=== PATIENT | female | born 1950 | race Caucasian/White ===

== ENCOUNTER 2020-05-17 09:27 | Outpatient (CLI) | payer OTHER, SELFPAY ==
[2020-05-19 16:41] LABS: SARS-CoV-2 RNA PCR Negative
== END 2020-05-17 09:28 | disposition home or self-care (01) ==
LOC: CHSLAB 09:31
PROVIDERS: PCP Family Medicine; Visit Provider Family Medicine
DX: Z20.828 Contact with and (suspected) exposure to other viral communicable diseases (principal)
CPT/HCPCS: 87635; C9803; U0003

== ENCOUNTER → 2020-05-31 08:11 | Outpatient (CLI) | payer MEDICARE, SELFPAY ==
--- NOTE | ~2020-05-31 | US_ITS ---
US abdomen complete EXAMINATION: US Abdomen Complete INDICATION: Right lower quadrant pain. PROCEDURE: Realtime High Resolution abdomen ultrasound. COMPARISON: No prior studies for comparison FINDINGS: Gallbladder is surgically absent. There are multiple echogenic foci in the gallbladder sultana a, likely dropped stones. Common bile duct measures 5-6 mm. Liver echotexture within normal limits without focal mass. Pancreas within normal limits. Pancreati c tail is obscured by bowel gas. Spleen is unremarkeable. Renal echotexture is within normal limits bilaterally without hydronephrosis, contour deforming mass or renal stone. Right kidney measures 10.8 cm. Left kidney measures 11.2 cm. Visualized aspects of the aorta and IVC are within normal limits. Portal vein is patent. No sonograph ic Sánchez's sign indicated by the technologist. IMPRESSION: 1: Echogenic foci in the gallbladder fossa postcholecystectomy, likely dropped stones. Reviewed, dictated and finalized at location A. LAY PLASTICIAN
== END ==
PROVIDERS: PCP Family Medicine; Visit Provider Family Medicine
DX: R10.31 Right lower quadrant pain (principal)
CPT/HCPCS: 76700

== ENCOUNTER → 2020-06-24 13:17 | Outpatient (CLI) | payer MEDICARE, SELFPAY ==
--- NOTE | ~2020-06-24 | CT_ITS ---
EXAMINATION: CT abdomen pelvis wo con DATE: 06/24/2020 14:14 INDICATION: Right lower quadrant pain TECHNIQUE: Computed tomography (CT) of the abdomen and pelvis was performed without intravenous contr ast. The dose-length product (DLP) was 1092.61 mGy-cm. Automated exposure control and iterative recon struction technique were employed. COMPARISON: 02/09/2018 FINDINGS: There are chronic reticular and groundglass opacities of the visualized lung bases. The hea rt size is normal. There is a small sliding hiatal hernia. Calcified coronary artery atherosclerosis is noted. The gallbladder is surgically absent. Within the limitations of noncontrast examination, th e liver, spleen, pancreas, and adrenal glands are normal. The kidneys are unremarkable. No pathologic ally enlarged abdominal or pelvic lymph nodes are identified. There is no free intraperitoneal gas or evidence of bowel obstruction. There is calcified atherosclerosis of the aorta and many of the other arteries. The appendix is normal. There is liquid stool throughout the colon to the level of the rec ros. There is severe lumbar spondylosis at L2-3. IMPRESSION: 1. No CT correlate for the patient's symptoms. 2. Liquid stool in the colon to the level of the rectum. Correlate for diarrhea. 3. Chronic interstitial lung disease of the visualized lung bases. Reviewed, dictated and finalized at location A. RAL NEUROLOGIST IMPRESSION: 1. No CT correlate for the patient's symptoms. 2. Liquid stool in the colon to the level of the rectum. Correlate for diarrhea . 3. Chronic interstitial lung disease of the visualized lung bases.
[2020-06-24 13:52] LABS: Estimated Glomerular Filt Rate 26
== END ==
PROVIDERS: PCP Family Medicine; Visit Provider Family Medicine
DX: R10.31 Right lower quadrant pain (principal); J84.9 Interstitial pulmonary disease, unspecified
CPT/HCPCS: 74176

== ENCOUNTER → 2021-04-02 13:58 | Outpatient (CLI) | payer MEDICARE, SELFPAY ==
--- NOTE | ~2021-04-02 | MM_ITS ---
EXAMINATION: MM screening [facility] BI w adithya HISTORY: Screening mammogram TECHNIQUE: Craniocaudal and mediolateral oblique 3-D tomosynthesis images were obtained and synthetic 2-D images were generated. CAD analysis was submitted and interpreted. COMPARISON: 09/30/2017, 09/16/2017, 04/13/2016 BREAST PARENCHYMAL COMPOSITION: The breasts are heterogeneously dense, which may obscure small masses . FINDINGS: RIGHT BREAST: An asymmetry is present in the middle third of the upper breast 7 cm from the nipple on the mediolateral oblique view. LEFT BREAST: There is an asymmetry in the posterior third of the breast in line with the nipple axis 9.1 cm from the nipple on the mediolateral oblique view. IMPRESSION: 1. Bilateral breast findings as described above. 2. Additional mammographic views and possible breast ultrasound are recommended. BI-RADS Category 0: Incomplete: Needs additional imaging evaluation. Reviewed, dictated and finalized at location A. IMPRESSION: 1. Bilateral breast findings as described above. 2. Additional mammographic views and possible breast ultrasound are recommended . BI-RADS Category 0: Incomplete: Needs additional imaging evaluation.
== END ==
PROVIDERS: PCP Family Medicine; Visit Provider Nurse Practitioner Family
DX: Z12.31 Encounter for screening mammogram for malignant neoplasm of breast (principal); R92.8 Other abnormal and inconclusive findings on diagnostic imaging of breast
CPT/HCPCS: 77063; 77067

== ENCOUNTER → 2021-05-07 08:34 | Outpatient (CLI) | payer MEDICARE, SELFPAY ==
--- NOTE | ~2021-05-07 | MMUS_ITS ---
EXAMINATION: MM diagnostic [facility] BI w adithya, US breast BI complete HISTORY: Bilateral breast asymmetries reported on 04/02/2021 bilateral screening mammogram TECHNIQUE: Additional 3-D tomosynthesis images of both breasts were performed and synthetic 2-D image s were generated. CAD analysis was submitted and interpreted. High resolution complete bilateral [facility] ultrasound including all 4 quadrants and subareolar areas was performed. COMPARISON: 04/02/2021 bilateral screening mammogram BREAST PARENCHYMAL COMPOSITION: The breasts are heterogeneously dense, which may obscure small masses . FINDINGS: MAMMOGRAPHIC FINDINGS: No suspicious mass or architectural distortion, malignant calcification, skin thickening or retractio n or significant new or developing density is detected. ULTRASOUND: No suspicious mass or shadowing or other significant sonographic abnormality of either breast is dete cted. IMPRESSION: 1. No mammographic evidence of malignancy 2. Routine annual mammographic screening is recommended BI-RADS Category 1: Negative Reviewed, dictated and finalized at location A. E COORDINATOR IMPRESSION: 1. No mammographic evidence of malignancy 2. Routine annual mammographic screening is recommended BI-RADS Category 1: Negative
== END ==
PROVIDERS: PCP Family Medicine; Visit Provider Nurse Practitioner Family
DX: R92.8 Other abnormal and inconclusive findings on diagnostic imaging of breast (principal)
CPT/HCPCS: 76641; 77062; 77066; G0279

== ENCOUNTER → 2021-08-11 11:50 | Outpatient (CLI) | payer MEDICARE, SELFPAY ==
--- NOTE | ~2021-08-11 | MR_ITS ---
EXAMINATION: MR knee LT wo con DATE: 08/11/2021 13:08 INDICATION: Left knee pain TECHNIQUE: Magnetic resonance imaging (MRI) of the left knee was performed without intravenous contra st. Sequences included coronal PD-weighted FSE, coronal PD-weighted FS FSE, sagittal T2-weighted FSE , sagittal PD-weighted FS FSE and axial PD weighted fat saturated FSE. COMPARISON: 07/24/2011 FINDINGS: Medial compartment: There is medial extrusion of the meniscal body. Complex tear of the body and posterior horn of the me dial meniscus. The remaining posterior horn is small with macerated appearance. Extensive full/near f ull-thickness cartilage loss along the anterior to central weightbearing medial femoral condyle and m edial half of the medial tibial plateau. There is remodeling of the articular cortex at the anteromed ial aspect medial tibial plateau and mild cortical irregularity with subcortical low signal intensity eburnation and edema-like marrow signal changes. Lateral compartment: Additional complex tear at the anterior horn of the lateral meniscus and at least partial tear of ind eterminate morphology near the posterior root of the lateral meniscus appear additional deep chondral ulceration along the medial aspect of the central weightbearing medial femoral condyle and juxtapose d medial side of the lateral tibial plateau, the latter with underlying subarticular edema-like marro w signal change. Partial-thickness chondral fissuring along the posterior weightbearing lateral femor al condyle. Patellofemoral compartment: Extensive full/near full-thickness cartilage loss throughout the lateral patellar facet and lateral t rochlea with scattered underlying edema-like marrow signal change. Less severe partial thickness wai dral ulceration and fissuring at the trochlear groove and medial facet. Ligaments and tendons: Anterior cruciate ligament is not visualized suggesting chronic complete tear. Posterior cruciate lig ament remains normal. Thickening and mild increased signal at the proximal aspect of the fibular fernando ateral ligament without surrounding edema consistent with scarring related to chronic sprain. Patella r tendon is normal. Mild distal quadriceps tendinopathy. The visualized medial and lateral hamstring tendons as well as the iliotibial band are normal. Fluid: Small left knee joint effusion at the lateral gutter of the suprapatellar pouch. Small Falk's cyst c ontaining a 1.5 x 1.0 x 0.9 cm osteochondral body. No intra-articular loose osteochondral bodies.. Osseous/other: Lateral subluxation of the tibia relative to the femoral condyles. There is also lateral patellar sub luxation. Prominent marginal osteophytes in all 3 compartments of the knee. No fracture or pathologic marrow replacing process. IMPRESSION: 1. 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 2. Complex medial and lateral meniscal tears. 2. 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 3. Scarring consistent with chronic sprain of the fibular collateral ligament. 4. Small left knee joint effusion and small Falk's cyst. Reviewed, dictated and finalized at location A. FARM MANAGER
== END ==
PROVIDERS: Visit Provider Nurse Practitioner Adult Health
DX: M17.12 Unilateral primary osteoarthritis, left knee (principal); M25.462 Effusion, left knee; M71.22 Synovial cyst of popliteal space [Baker], left knee; S83.272A Complex tear of lateral meniscus, current injury, left knee, initial encounter; S83.512A Sprain of anterior cruciate ligament of left knee, initial encounter; S83.232A Complex tear of medial meniscus, current injury, left knee, initial encounter; X58.XXXA Exposure to other specified factors, initial encounter
CPT/HCPCS: 73721

== ENCOUNTER 2021-10-19 12:11 | Outpatient (CLI) | payer MEDICARE, SELFPAY ==
[2021-10-19 13:11] LABS: Influenza A QL RT-PCR Negative (Negative); Influenza B QL RT-PCR Negative (Negative); SARS-CoV-2 RNA PCR Positive (Negative)
== END 2021-10-19 12:12 | disposition home or self-care (01) ==
PROVIDERS: PCP Family Medicine; Visit Provider Nurse Practitioner Family
DX: U07.1 COVID-19 (principal); R68.89 Other general symptoms and signs; R50.9 Fever, unspecified
CPT/HCPCS: 87502; C9803; U0003; U0005

== ENCOUNTER 2021-10-29 12:21 | Emergency (ER) | payer MEDICARE, SELFPAY ==
[2021-10-29] VITALS (9 sets, daily range): BP systolic 139–165; BP diastolic 55–96; PULSE 68–84; RESP 13–22; TEMP 36.3; O2SAT 96–100
--- NOTE | ~2021-10-29 | NM_ITS ---
EXAMINATION: NM pulmonary perfusion DATE: 10/29/2021 19:15 INDICATION: Shortness of breath and cough. TECHNIQUE: 2.87 mCi Tc-99m MAA was administered intravenously for perfusion images. Scintigraphic im ages of the chest were obtained. COMPARISON: chest single view 10/29/21 FINDINGS: Perfusion images show small defects in the lower lobes. IMPRESSION: 1. Pulmonary embolism absent (low probability). Reviewed, dictated and finalized at location A.
--- NOTE | ~2021-10-29 | XR_ITS ---
EXAMINATION: XR chest 1V INDICATION: Cough, COVID positive TECHNIQUE: AP view of the chest is obtained. COMPARISON: 09/11/2014 FINDINGS: There are minimal airspace opacities of the left midlung zone. There is no pleural effusion or pneumothorax. The cardiomediastinal silhouette is normal. Calcified atherosclerosis is noted. IMPRESSION: 1. Minimal airspace opacities of the left midlung zone, consistent with atelectasis versus pneumonia. Reviewed, dictated and finalized at location B. IMPRESSION: 1. Minimal airspace opacities of the left midlung zone, consistent with atelect asis versus pneumonia.
--- NOTE | 2021-10-29 17:51 | ECG_ITS ---
Measurements Intervals [place] Rate: 75 P: 25 FL: 140 QRS: -41 QRSD: 103 T: -18 QT: 400 QTc: 448 Interpretive Statements SINUS RHYTHM LEFT AXIS DEVIATION POSSIBLE LEFT VENTRICULAR HYPERTROPHY BORDERLINE R WAVE PROGRESSION, ANTERIOR LEADS BORDERLINE T WAVE ABNORMALITY- ANT/INF LEADS BORDERLINE ECG Electronically Signed On 10-29-2021 19:56:19 CDT by Cedric Herron D.O.
--- NOTE | 2021-10-29 17:53 | ED.SOB ---
HPI - SOB/Dyspnea General Chief Complaint: Shortness of Breath/Dyspnea <Nohemi Cohn Arizmendi III, DO - Last Filed: 10/29/21 18:45> Stated Complaint: covid positive <Nohemi Artisver III, DO - Last Filed: 10/29/21 18:45> Time Seen by Provider: 10/29/21 17:31 <Nohemi Arizmendi III, DO - Last Filed: 10/29/21 18:45> Source: patient <Nohemi Lalit Arizmendi III, DO - Last Filed: 10/29/21 18:45> Mode of arrival: ambulatory <Nohemi Artisver III, DO - Last Filed: 10/29/21 18:45> Limitations: no limitations <Nohemi Arizmendi III, DO - Last Filed: 10/29/21 18:45> History of Present Illness HPI Narrative: Pt presents with worsening SOB and cough. Pt tested positive for covid 10/19 and was improving until a couple of days ago and has become more SOB and has a productive cough. Pt denies CP or fever but is running higher than normal for her. <Nohemi Artisver III, DO - Last Filed: 10/29/21 18:45> MD elicited complaint: shortness of breath and cough <Nohemi Artisver III, DO - Last Filed: 10/29/21 18:45> Timing: intermittent <Nohemi Arizmendi III, DO - Last Filed: 10/29/21 18:45> Severity: moderate <Nohemi Arizmendi III, DO - Last Filed: 10/29/21 18:45> Exacerbating factors: exertion and coughing <Nohemi Cohn Arizmendi III, DO - Last Filed: 10/29/21 18:45> Relieving factors: nothing <Nohemi Cohn Arizmendi III, DO - Last Filed: 10/29/21 18:45> Associated symptoms: cough and sputum production <Nohemi Lalit Arizmendi III, DO - Last Filed: 10/29/21 18:45> Related Data Home Medications: Home Medications Medication Instructions Recorded Confirmed clopidogrel 75 mg tablet 75 mg PO DAILY 04/22/20 04/22/20 guanfacine 1 mg tablet 1 mg PO .QHS PRN tablet 04/22/20 04/22/20 insulin degludec 100 unit/mL 22 unit SUBCUT DAILY ml 04/22/20 04/22/20 subcutaneous solution liraglutide 0.6 mg/0.1 mL (18 mg/3 1.8 mg SUBCUT DAILY ml 04/22/20 04/22/20 mL) subcutaneous pen injector rosuvastatin 10 mg tablet 10 mg PO DAILY 04/22/20 04/22/20 irbesartan 300 mg tablet 150 mg PO BID tablet 09/23/20 dapagliflozin 5 mg tablet 5 mg PO DAILY 03/11/21 <Nohemisherly Artisver III, DO - Last Filed: 10/29/21 18:45> Allergies/Adverse Reactions: Allergies Allergy/AdvReac Type Severity Reaction Status Date / Time latex Allergy Rash Verified 10/29/21 17:36 <Nohemi Artisver HEATHER, DO - Last Filed: 10/29/21 18:45> Review of Systems Review of Systems: All systems reviewed & are unremarkable except as noted in HPI and below <Nohemi Artisver HEATHER, DO - Last Filed: 10/29/21 18:45> [facility] Past Medical History Medical History: Medical History (Updated 10/29/21 @ 19:49 by Arturo Randolph MD) BMI 34.0-34.9,adult BMI 36.0-36.9,adult Depression History of CVA (cerebrovascular accident) History of Yahaira-Laws syndrome Mixed hyperlipidemia Parathyroid abnormality Right lower quadrant abdominal pain Right lower quadrant pain Type 2 diabetes mellitus without complications <Nohemi Artisver III, DO - Last Filed: 10/29/21 18:45> Surgical History Surgical History: Surgical History History of cholecystectomy History of D&C <Nohemi Artisver HEATHER, DO - Last Filed: 10/29/21 18:45> Family History Family History: Family History Father Family history of hypercholesterolemia Hypertension Cerebrovascular accident Mother Family history of hypercholesterolemia Hypertension <Nohemisherly Artisver HEATHER, DO - Last Filed: 10/29/21 18:45> Social History Social History: Social History Smoking status: Never smoker Alcohol intake: never <Nohemisherly Artisver III, DO - Last Filed: 10/29/21 18:45> Exam Const: General: no acute distress <Nohemi Arizmendi III, DO - Last Filed: 10/29/21 18:45> O
[2021-10-29] MEDS: ALBUTEROL SULFATE NEB 2.5 MG/0.5 ML INH 5 MG INHALATION (18:00)
[2021-10-29] MEDS: IPRATROPIUM BR 0.02% INH SOLN 0.5 MG/2.5 ML VIAL INHALATION (18:01)
[2021-10-29 18:08] LABS: Basophils Absolute Auto 0.1 K/mm3 (0.0-0.1); Basophils Percent Auto 0.7 % (0.2-1.2); Eosinophils Absolute Auto 0.6 K/mm3 (0-0.3); Eosinophils Percent Auto 5.5 % (0-4.4); Hematocrit 38.1 % (37.0-47.0); Hemoglobin 12.4 g/dL (12.0-15.0); Immature Granulocyte Absolute 0.05 K/mm3 (0.00-0.031); Immature Granulocyte Percent A 0.5 % (0-0.5); Lymphocytes Absolute Auto 1.98 K/mm3 (0.9-3.2); Lymphocytes Percent Auto 18.7 % (18.3-44.2); Mean Corpuscular HGB Conc 32.5 g/dl (32-36); Mean Corpuscular Volume 89.2 fl (80-100); Monocytes Absolute Auto 0.8 K/mm3 (0.1-0.6); Monocytes Percent Auto 7.4 % (2.6-8.5); Neutrophils Absolute Auto 7.1 K/mm3 (1.3-6.7); Neutrophils Percent Auto 67.2 % (45.5-73.1); Platelet Count Result 393 k/mm3 (150-375); Red Blood Count 4.27 M/mm3 (4.2-5.4); Red Cell Distribution Width 12.9 % (11.5-14.5); White Blood Count 10.6 K/mm3 (4.5-10.0)
[2021-10-29 18:19] LABS: Prothrombin Time 13.1 Seconds (11.1-14.7)
[2021-10-29 18:19] LABS: Magnesium 2.1 mg/dL (1.6-2.3)
[2021-10-29 18:20] LABS: Partial Thromboplastin Time 28.6 SECONDS (22.3-36.8)
[2021-10-29 18:22] LABS: Alanine Aminotransferase 21 U/L (4-35); Albumin Level 4.4 g/dL (3.5-5.1); Alkaline Phosphatase 138 U/L (38-126); Anion Gap 6 mmol/L (8-16); Aspartate Amino Transferase 36 U/L (14-36); Bilirubin,Total 0.6 mg/dL (0.2-1.3); Blood Urea Nitrogen 21 mg/dL (7-17); Carbon Dioxide 26 mmol/L (22-30); Chloride 108 mmol/L (98-107); Estimated CRCL calculation 32 ml/min; Estimated Glomerular Filt Rate 30; Glucose 153 mg/dL (65-110); Potassium 3.8 mmol/L (3.4-5.0); Sodium 140 mmol/L (137-145)
[2021-10-29 18:48] LABS: NT Pro B Type Natriuretic Pept 185 pg/mL (5-100); Troponin I < 0.012 ng/mL (0.000-0.034)
--- NOTE | 2021-10-29 18:54 | PC.NURSE ---
Pt to Nuclear Med at this time.
== END 2021-10-29 20:20 | disposition home or self-care (01) ==
PROVIDERS: Emergency Medicine; Emergency Provider Emergency Medicine; PCP Family Medicine
DX: U07.1 COVID-19 (principal); J18.9 Pneumonia, unspecified organism; R79.89 Other specified abnormal findings of blood chemistry; E78.2 Mixed hyperlipidemia; E11.9 Type 2 diabetes mellitus without complications; K22.6 Gastro-esophageal laceration-hemorrhage syndrome; F32.A Depression, unspecified; Z86.73 Personal history of transient ischemic attack (TIA), and cerebral infarction without residual deficits; Z79.84 Long term (current) use of oral hypoglycemic drugs; R94.31 Abnormal electrocardiogram [ECG] [EKG]
CPT/HCPCS: 36415; 71045; 78580; 80053; 83735; 83880; 84484; 85025; 85610; 85730; 93005; 94640; 99284; A9540

== ENCOUNTER 2022-06-15 15:13 | Emergency (ER) | payer MEDICARE, SELFPAY ==
[2022-06-15] VITALS (19 sets, daily range): BP systolic 122–152; BP diastolic 57–76; PULSE 64–73; RESP 16–18; TEMP 36.2–36.6; O2SAT 93–100
--- NOTE | ~2022-06-15 | CT_ITS ---
EXAMINATION: CT abdomen pelvis wo con DATE: 06/15/2022 19:38 INDICATION: Right lower quadrant abdominal pain radiating to right upper quadrant. Nausea, diarrhea. Chills. History of cholecystectomy and pancreatitis. TECHNIQUE: Computed tomography (CT) of the abdomen and pelvis was performed without intravenous contr ast. Automated exposure control and iterative reconstruction technique were employed. Exam dose: 112 6.15 mGy-cm total exam DLP. COMPARISON: 06/24/2020 CT abdomen pelvis FINDINGS: Chronic fibrotic changes at the lung bases, present on 06/24/2020 Normal heart size. Small pericardial effusion. No pleural effusion. Moderate sized sliding hiatal hernia. Status post cholecystectomy. No hepatic, splenic, pancreatic, adrenal or renal space-occupying mass l esion is detected. Abdominal aortic calcification. There is prominent calcification at the origin of the celiac and to a lesser extent superior mesenteric arteries. Prominent bilateral renal artery calcifications includin g at the origins of the renal arteries and in the renal santo. No intraperitoneal or retroperitoneal or pelvic mass lesion or adenopathy or ascites. The uterus, adnexal structures and urinary bladder are unremarkable. Minimal colonic diverticulosis; no CT evidence of diverticulitis or appendicitis, bowel obstruction, bowel wall thickening, pneumatosis or intraperitoneal free air. Some colonic fluid levels are noted i n the small bowel and proximal colon, possibly due to enterocolitis. Small fat-containing umbilical hernia. Diffuse idiopathic skeletal hyperostosis of the thoracic spine. Moderate degenerative disc disease wi th minimal retrolisthesis at L1-2. Severe degenerative disc disease with associated approximately 3 mm retrolisthesis at L2-3. Mild degenerative disc disease with minimal retrolisthesis at L3-4. Bilateral hip osteoarthritis. No suspicious osteolytic or osteoblastic lesions. IMPRESSION: Chronic bibasilar pulmonary fibrotic changes Small pericardial effusion Moderate size sliding hiatal hernia Status post cholecystectomy Prominent atherosclerosis Minimal colonic diverticulosis Reviewed, dictated and finalized at Location A. Reviewed, dictated and finalized at location A. IGERATION MECHANIC HELPER
--- NOTE | 2022-06-15 16:22 | PC.NURSE ---
PT IS SITTING ON STRETCHER WITH AT BEDSIDE. PT IS AWAITING ERP ASSESSMENT AT THIS TIME. WILL CONTINUE TO MONITOR.
--- NOTE | 2022-06-15 16:22 | ED.ABDPAIN ---
HPI - Abdominal Pain General Chief Complaint: Abdominal Pain Stated Complaint: extreme abdominal pain, nausea Source: patient Mode of arrival: ambulatory Limitations: no limitations History of Present Illness HPI narrative: 72-year-old female with a history of diabetes mellitus, hypertension, depression CVA, CKD, status post cholecystectomy presents to the ER with a -- 1 day history of right lower quadrant abdominal pain. Pain is continuous. She has nausea without any vomiting. No fever. No radiation of the pain. No exacerbating or relieving factors. -- Diarrhea for the past 2 days. No blood or mucus noted. MD elicited complaint: abdominal pain Onset (ago): day(s) ( Started yesterday) Pain Consistency: constant Location: RLQ Severity: moderate Quality: aching Radiation: none Migration to: no migration Exacerbating factors: nothing Relieving factors: nothing Associated symptoms: nausea, diarrhea and chills Related Data Patient : No Home Medications Medication Instructions Recorded Confirmed liraglutide 0.6 mg/0.1 mL (18 mg/3 1.8 mg subcut DAILY 04/22/20 06/15/22 mL) subcutaneous pen injector (Victoza 2-Navdeep) rosuvastatin 10 mg tablet (Crestor) 40 mg PO DAILY 04/22/20 06/15/22 irbesartan 300 mg tablet 150 mg PO BID 09/23/20 06/15/22 dapagliflozin 5 mg tablet (Farxiga) 5 mg PO DAILY 03/11/21 06/15/22 diltiazem HCl 120 mg 240 mg PO BID 06/15/22 06/15/22 capsule,extended release 24 hr (Cardizem CD) guanfacine 1 mg tablet 1 mg PO HS 06/15/22 06/15/22 insulin degludec 100 unit/mL (3 22 unit subcut DAILY 06/15/22 06/15/22 mL) subcutaneous pen (Tresiba FlexTouch U-100 insulin) sertraline 50 mg tablet 50 mg PO DAILY 06/15/22 06/15/22 Allergies Allergy/AdvReac Type Severity Reaction Status Date / Time latex Allergy Rash Verified 06/15/22 15:38 Review of Systems Review of Systems: All systems reviewed & are unremarkable except as noted in HPI and below Constitutional: Constitutional: Reports as per HPI, Reports no additional constitutional complaints and Reports chills Eyes: Eyes: Reports as per HPI and Reports no additional eye complaints ENT: Reports system reviewed and no additional complaints, except as documented and Reports as per HPI Cardiovascular: Cardiovascular: Reports as per HPI and Reports no additional cardiovascular complaints Respiratory: Respiratory: Reports as per HPI and Reports no additional respiratory complaints Gastrointestinal: Gastrointestinal: Reports as per HPI, Reports no additional gastrointestinal complaints, Reports abdominal pain, Reports diarrhea and Reports nausea Genitourinary: Genitourinary: Reports no additional female genitourinary complaints and Reports as per HPI Comments: patient is menopausal Musculoskeletal: Musculoskeletal: Reports no additional musculoskeletal complaints and Reports as per HPI Integumentary/Breasts: Skin/Breast: Reports system reviewed and no additional complaints, except as docu and Reports as per HPI Neurologic: Reports system reviewed and no additional complaints, except as documented and Reports as per HPI Psychiatric: Psychiatric: Reports no additional psychiatric complaints, Reports as per HPI and Reports depression Endocrine: Endocrine: Reports no additional endocrine complaints and Reports as per HPI Hematologic/Lymphatic: Hematologic/Lymphatic: Reports no additional hematologic/lymphatic complaints and Reports as per HPI Allergic/Immunologic: Allergic/Immunologic: Reports no additional allergic/immunologic complaints and Reports as per HPI [facility] Past Medical History Medical History Abnormal mammogram BMI 34.0-34.9,adult BMI 36.0-36.9,adult Body mass index [BMI] 36.0-36.9, adult (09/08/17) Depression History of CVA (cerebrovascular accident) History of Yahaira-Laws syndrome Mixed hyperlipidemia Parathyroid abnormality Right lower quadrant abdominal rosita
--- NOTE | 2022-06-15 16:34 | PC.NURSE ---
PT REFUSED EKG, REPORTS SHE JUST HAD A COMPLETE CARDIOLOGY WORKUP AND IS NOT HAVING CHEST PAIN. ERP IS AWARE.
--- NOTE | 2022-06-15 16:46 | PC.NURSE ---
PT REPORTS NAUSEA, ERP NOTIFIED AND MEDICATION TO BE ORDERED. PT ADVISED OF NEED FOR URINE SPECIMEN, REPORTS SHE IS UNABLE TO GO AT THIS TIME. WARM BLANKET PROVIDED. WILL CONTINUE TO MONITOR.
[2022-06-15] MEDS: ONDANSETRON HCL ODT 4 MG TABLET PO (17:06)
--- NOTE | 2022-06-15 17:07 | PC.NURSE ---
lab notified for draw. pt declines norco at this time, to await to see if zofran helps nausea. will continue to monitor.
--- NOTE | 2022-06-15 17:52 | PC.NURSE ---
LABS WERE COLLECTED AT THIS TIME.
[2022-06-15] MEDS: HYDROcodone/acetaminophen (*CRX) 5-325 MG TABLET 1 TAB PO (17:55)
[2022-06-15 17:59] LABS: Hematocrit 32.3 % (35.0-42.0); Hemoglobin 10.4 g/dL (11.7-13.8); Mean Corpuscular HGB Conc 32.2 g/dL (32.0-36.0); Mean Corpuscular Hemoglobin 29.1 pg (27.0-31.0); Mean Corpuscular Volume 90.2 fL (78.0-102.0); Mean Platelet Volume 9.3 fl (9.2-11.8); Platelet Count Result 234 K/mm3 (150-420); Red Blood Count 3.58 M/mm3 (4.20-5.40); Red Cell Distribution Width 12.5 % (11.6-14.4); White Blood Count 4.5 K/mm3 (4.8-10.8)
[2022-06-15 18:24] LABS: Lactic Acid Reflex 0.6 mmol/L (0.4-2.0)
[2022-06-15 18:28] LABS: Alanine Aminotransferase 24 U/L (14-59); Alkaline Phosphatase 80 U/L (46-116); Anion Gap 7 mmol/L (8-16); Aspartate Amino Transferase 26 U/L (15-37); Bilirubin,Total 0.7 mg/dL (0.00-1.00); Blood Urea Nitrogen 33 mg/dL (7-18); Calcium 9.1 mg/dL (8.5-10.1); Carbon Dioxide 24 mmol/L (21-32); Chloride 106 mmol/L (98-108); Estimated CRCL calculation 29 ml/min; Estimated Glomerular Filt Rate 26; Glucose 108 mg/dL (70-99); Lipase 40 U/L (16-77); Osmolality Calculated 292 mOsm/kg (285-295); Potassium 3.7 mmol/L (3.5-5.1); Sodium 137 mmol/L (136-145); Total Protein 6.3 g/dL (6.4-8.2)
[2022-06-15 18:35] LABS: Troponin I 6.2 ng/L (0.00-60.4)
[2022-06-15 18:41] LABS: Partial Thromboplastin Time 24.7 SEC (23.90-30.70); Prothrombin Time 10.8 Seconds (9.50-12.10)
[2022-06-15 18:42] LABS: Band Neutrophils Percent 0 % (0-6); Basophils Percent Manual 0 % (0-1); Eosinophils Absolute Manual 0.22 K/mm3 (0.02-0.5); Eosinophils Percent Manual 5 % (1-6); Lymphocytes Absolute Manual 0.99 K/mm3 (1.1-4.5); Lymphocytes Percent Manual 22 % (18-44); Monocytes Absolute Manual 0.58 K/mm3 (0.1-0.90); Monocytes Percent Manual 13 % (3-9); Neutrophils Percent Manual 60 % (46-73); Platelet Estimate Adequate (Adequate); Total Cells Counted 100
[2022-06-15] MEDS: LACTATED RINGERS 1,000 ML 150 ML IV CONT (18:48)
--- NOTE | 2022-06-15 18:50 | PC.NURSE ---
IV SITE ESTABLISHED, IVF INFUSING WITHOUT DIFFICULTY ORDERED. WARM BLANKET PROVIDED. PT DENIES ANY OTHER NEEDS OR COMPLAINTS. WILL CONTINUE TO MONITOR. AT BEDSIDE.
--- NOTE | 2022-06-15 19:13 | PC.NURSE ---
REPORT TO DEANN LONDON
[2022-06-15 20:17] LABS: Add Urine Microscopic? YES; Appearance Urine Clear (Clear); Bilirubin Urine Negative (Negative); Blood Urine Negative (Negative); Color Urine Light Yellow (Yellow); Glucose Urine UA 3+ (Negative); Ketones Urine Negative (Negative); Leukocyte Esterase Ur Negative LEU/UL (Negative); Nitrate Urine Negative (Negative); Protein Urine Trace (Negative); Urobilinogen Urine 0.2 mg/dL (0.2-1.0)
[2022-06-15 20:22] LABS: Bacteria Urine Trace /hpf; RBC Urine 0-2 /hpf (0-2); Squamous Epithelial Cell Urine Rare /hpf (Few); WBC Urine 0-3 /hpf (0-3)
[2022-06-15] MEDS: PROCHLORPERAZINE EDISYLATE 10 MG/2 ML VIAL IV PUSH (20:38)
== END 2022-06-15 21:52 | disposition home or self-care (01) ==
PROVIDERS: Emergency Provider Internal Medicine Critical Care Medicine; PCP Family Medicine
DX: K57.30 Diverticulosis of large intestine without perforation or abscess without bleeding (principal); E11.9 Type 2 diabetes mellitus without complications; I12.9 Hypertensive chronic kidney disease with stage 1 through stage 4 chronic kidney disease, or unspecified chronic kidney disease; E11.22 Type 2 diabetes mellitus with diabetic chronic kidney disease; N17.9 Acute kidney failure, unspecified; N18.9 Chronic kidney disease, unspecified; E78.2 Mixed hyperlipidemia; Z79.4 Long term (current) use of insulin
CPT/HCPCS: 36415; 74176; 80053; 81001; 83605; 83690; 84484; 85025; 85610; 85730; 96361; 96374; 99284; A9270; J0780; J7120

== ENCOUNTER 2023-09-21 14:20 | Outpatient (RCR) | payer MEDICARE, SELFPAY ==
--- NOTE | 2023-09-21 15:54 | OPREHPOC ---
Outpatient Therapy Plan of Care This is a Multidisciplinary Plan of Care that may contain components documented by all disciplines (PT, OT, and ST.) PT Problem 1 PT Problem #1 Knowledge Deficit PT Goal 1 Goal 1. independent and compliant with HEP Target Visit 4 PT Problem 2 PT Problem #2 Pain PT Goal 1 Goal 1. patient to report no pain in the R hip in the past week 2. patient to display 30% or less functional deficits per the LEFS. Target Visit 9 PT Problem 3 PT Problem #3 Impaired Strength PT Goal 1 Goal 1. 4+/5 or better bilateral hip strength overall 2. 5/5 R knee strength overall Target Visit 9 PT Problem 4 PT Problem #4 Impaired Range of Motion PT Goal 1 Goal 1. 90 degrees or better active R hip flexion Target Visit 9 PT Problem 5 PT Problem #5 Impaired Functional Mobil PT Goal 1 Goal 1. patient to ambulate without any AD 2. patient to display equal stance time and stride length on level surfaces 3. ambulate up and down steps with reciprocal gait mechanics with 1 hand rail or less Target Visit 9
--- NOTE | 2023-09-21 15:54 | PTOPEVAL1 ---
Assessment and note entered by [facility]T [employer], PT Evaluation Information Assessment Status Evaluation Diagnosis s/p R PJ (anterior) Onset 08/29/23 Subjective Information patient reports she had R PJ on 08/29/23. she reports since surgery it has been a little achy and sore, but otherwise she is doing well. she reports she is using a walker for ambulation, and was told she cannot drive until 8 weeks post op. she reports she is compliant with her post op exercises given to her by the surgeon. she reports she is not allowed to perform a SLR until 6 weeks post op. she reports prior to her surgery she was struggling to walk and standing, and reports she would like to get back to pain free walking, standing, and home/community activities. Reported Pain Level Pain Score 1: Self Report Assessment PT Clinical Summary mrs. retana is a pleasant 73 yo woman who presents to skilled PT services for evaluation and treatment s/p R PJ. she had an anterior PJ on 08/29/23. she presents with decreased R hip strength, decreased R hip rom, abnormal gait, and functional deficits today. her post op goals are to walk without pain and without an AD. continued skilled PT is indicated to improve her quality of life, functional activity performance, and return to her prior level activities. Plan of Care Interventions Gait Training,Hot Pack/Cold Pack,Manual Therapy, Neuro Re-education,Patient/Caregiver Educati, Therapeutic Activities,Therapeutic Exercise PT Services Indicated Yes Treatment Frequency and 3x weekly for 9 visits Duration These treatments will address the objective and functional deficits as defined above. The patient will be advanced safely and appropriately in order for the patient to progress towards his/her prior level of function. Additional exercises will be introduced and as well as a comprehensive home exercise program upon discharge, if needed, ?to ensure carryover of functional gains achieved in the clinic. This treatment plan has been reviewed and agreement upon by the patient.
--- NOTE | 2023-10-03 13:47 | PCPTNOTE ---
pt cancelled. no reason given
--- NOTE | 2023-10-14 14:16 | PCPTNOTE ---
patient called and reports somethin came up, and she is unable to make it into PT today.
--- NOTE | 2023-10-17 14:58 | PTOPPROG ---
Assessment and note entered by [facility] Evaluation Information Assessment Status Progress Diagnosis s/p R PJ (anterior) Onset 08/29/23 Subjective Information Pt. reports she continues to improve. She reports that she returned to driving today. she states that she still notices some weakness in the right hip. She has not had to use the cane for ambulation in some time. She reports that she does not see her doctor for another 2 weeks and would like to continue PT in order to further improve strength in order to improve her steadiness with standing activities. Assessment PT Clinical Summary Mrs. Booth has attended a total of 9 treatment sessions. She has demonstrated improvements in gait, function, strength and mobility in this time . Despite the improvements weakness remains significant at the proximal right l.e. and gait is still impaired. At this time recommended continued skilled PT focusing on remaining strength and gait deficits in order to improve pt. ability to independently complete IADL's. Plan of Care Interventions Gait Training,Manual Therapy,Neuro Re-education, Patient/Caregiver Educati,Therapeutic Activities, Therapeutic Exercise PT Services Indicated Yes Treatment Frequency and 2x/week for additional 4 visits Duration These treatments will address the objective and functional deficits as defined above. The patient will be advanced safely and appropriately in order for the patient to progress towards his/her prior level of function. Additional exercises will be introduced and as well as a comprehensive home exercise program upon discharge, if needed, ?to ensure carryover of functional gains achieved in the clinic. This treatment plan has been reviewed and agreement upon by the patient.
--- NOTE | 2023-10-28 17:08 | OPREHPOC ---
Outpatient Therapy Plan of Care This is a Multidisciplinary Plan of Care that may contain components documented by all disciplines (PT, OT, and ST.) PT Problem 1 PT Problem #1 Knowledge Deficit PT Goal 1 Goal 1. independent and compliant with HEP Target Visit 4 Progress Met PT Problem 2 PT Problem #2 Pain PT Goal 1 Goal 1. patient to report no pain in the R hip in the past week 2. patient to display 30% or less functional deficits per the LEFS. Target Visit 9 Progress Met PT Problem 3 PT Problem #3 Impaired Strength PT Goal 1 Goal 1. 4+/5 or better bilateral hip strength overall 2. 5/5 R knee strength overall Target Visit 9 Progress Met PT Problem 4 PT Problem #4 Impaired Range of Motion PT Goal 1 Goal 1. 90 degrees or better active R hip flexion Target Visit 9 Progress Met PT Problem 5 PT Problem #5 Impaired Functional Mobil PT Goal 1 Goal 1. patient to ambulate without any AD. met 2. patient to display equal stance time and stride length on level surfaces. met 3. ambulate up and down steps with reciprocal gait mechanics with 1 hand rail or less Target Visit 9 Progress Partially Met
--- NOTE | 2023-10-28 17:08 | PTOPDC ---
Assessment and note entered by [employer]T [employer], PT Evaluation Information Assessment Status Discharge Diagnosis s/p R PJ (anterior) Onset 08/29/23 Subjective Information patient reports she feels Good today. she reports she was DC'd by her ortho. she reports she has no pain. she reports she is back to all activities without an AD or assist. Reported Pain Level Pain Score 0: Self Report Assessment PT Clinical Summary mrs. retana presents to skilled PT services for her 13th skilled therapy visit. she has met all goals for skilled PT, except for stair ambulation with 1 hand rail hold. as of this date, she will DC skilled PT services, and continue with HEP independent at home. Plan of Care PT Services Indicated Yes
== END 2023-10-28 17:15 | disposition home or self-care (01) ==
LOC: CHSPT 14:20
PROVIDERS: Visit Provider Orthopaedic Surgery
DX: Z47.1 Aftercare following joint replacement surgery (principal); Z96.641 Presence of right artificial hip joint
CPT/HCPCS: 97110; 97112; 97140; 97161; 97530

== ENCOUNTER 2024-04-17 12:47 | Outpatient (RCR) | payer MEDICARE, SELFPAY ==
--- NOTE | 2024-04-17 14:13 | OPREHPOC ---
Outpatient Therapy Plan of Care This is a Multidisciplinary Plan of Care that may contain components documented by all disciplines (PT, OT, and ST.) PT Problem 1 PT Problem #1 Knowledge Deficit PT Goal 1 Goal / Goal Update 1. independent and compliant with HEP Target Visit 5 PT Problem 2 PT Problem #2 Pain PT Goal 1 Goal / Goal Update 1. decrease pain at worst to 2/10 or less in the lateral R hip/LE and gluteal region. Target Visit 10 PT Problem 3 PT Problem #3 Impaired Strength PT Goal 1 Goal / Goal Update 1. 5/5 bilateral hip strength Target Visit 10 PT Problem 4 PT Problem #4 Impaired Functional Mobil PT Goal 1 Goal / Goal Update 1. normal gait mechanics on level surfaces 2. reciprocal mechanics up and down steps 3. patient to squat and lift small objects from floor safely and confidently 4. LEFS to display 30% or less functional deficits Target Visit 10
--- NOTE | 2024-04-17 14:13 | PTOPEVAL1 ---
Assessment and note entered by JT File, PT Evaluation Information Assessment Status Evaluation Diagnosis R hip abductor tendonitis ICD-10 Condition Codes (PT) Pain in right hip M25.551 Subjective Information patient reports she fell on 02/16/24. she reports she fell on a [place] floor at [employer]. she reports she hit both the R hip and the head. she reports she did see her ortho who replaced her hip , and reports she had no fractures or loosening of the R hip replacement. she reports she is having more gluteal pain that radiates down the side of the leg. she reports it does not feel like sciatic pain. she reports she has been treating with heat , exercise, and rest at home. she reports she has increased pain at times with getting up, walking steps, bending/lifting. Reported Pain Level Pain Score 5: Self Report Assessment PT Clinical Summary mrs. retana is a 73 yo woman who presents to skilled PT services for evaluation and treatment of R hip pain. she presents this date with decreased mm strength, pain, and tenderness to palpation along the lateral R hip. she presents with these symptoms following a fall. she has been cleared of any fractures. she is likely suffering from gluteal and ITB tendonitis. she would benefit from continued skilled PT to address her objective/ functional deficits and return to her prior level functional activity performance/quality of life. Plan of Care Interventions Electrical Stimulation,Gait Training,Hot Pack/Cold Pack,Manual Therapy,Neuro Re-education,Patient/ Caregiver Educati,Therapeutic Activities, Therapeutic Exercise PT Services Indicated Yes Treatment Frequency and 2x weekly for 10 visits Duration These treatments will address the objective and functional deficits as defined above. The patient will be advanced safely and appropriately in order for the patient to progress towards his/her prior level of function. Additional exercises will be introduced and as well as a comprehensive home exercise program upon discharge, if needed, ?to ensure carryover of functional gains achieved in the clinic. This treatment plan has been reviewed and agreement upon by the patient.
--- NOTE | 2024-05-16 13:05 | PCPTNOTE ---
Cancelled session. Reports she is still at the doctor in [place] and will not be back in time. Pt states that she will be here Tuesday.
--- NOTE | 2024-05-22 11:38 | OPREHPOC ---
Outpatient Therapy Plan of Care This is a Multidisciplinary Plan of Care that may contain components documented by all disciplines (PT, OT, and ST.) PT Problem 1 PT Problem #1 Knowledge Deficit PT Goal 1 Goal / Goal Update 1. independent and compliant with HEP Target Visit 5 Progress Met PT Problem 2 PT Problem #2 Pain PT Goal 1 Goal / Goal Update 1. decrease pain at worst to 2/10 or less in the lateral R hip/LE and gluteal region. Target Visit 16 Progress Not Met PT Problem 3 PT Problem #3 Impaired Strength PT Goal 1 Goal / Goal Update 1. 5/5 bilateral hip strength Target Visit 16 Progress Not Met PT Problem 4 PT Problem #4 Impaired Functional Mobil PT Goal 1 Goal / Goal Update 1. normal gait mechanics on level surfaces. met in short distance 2. reciprocal mechanics up and down steps. met up 3. patient to squat and lift small objects from floor safely and confidently. DC goal 4. LEFS to display 30% or less functional deficits Target Visit 16 Progress Not Met
--- NOTE | 2024-05-22 11:38 | PTOPREEVAL ---
Assessment and note entered by [employer]T File, PT Evaluation Information Assessment Status Re-evaluation Diagnosis R hip abductor tendonitis ICD-10 Condition Codes (PT) Pain in right hip M25.551 Onset 02/16/24 Subjective Information patient reports she is a little worse today. she reports her R hip got a little worse over the weekend as she was out and walking/shopping a lot. she reports she feels she has less pain overall in the ITB of the R LE. LEFS improvement from 42.5 % to 35% today. Reported Pain Level Pain Score 4: Self Report Assessment PT Clinical Summary mrs. retana presents to skilled PT today for her 10th skilled PT visit. she displays continued pain in the R hip, but less overall and improved subjective function per the LEFS. patient has made progress towards goals, but has not yet achieved more than her HEP goal. 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 Plan of Care Interventions Electrical Stimulation,Gait Training,Hot Pack/Cold Pack,Manual Therapy,Neuro Re-education,Patient/ Caregiver Educati,Therapeutic Activities, Therapeutic Exercise PT Services Indicated Yes Treatment Frequency and continue skilled PT 2x weekly for more visits Duration These treatments will address the objective and functional deficits as defined above. The patient will be advanced safely and appropriately in order for the patient to progress towards his/her prior level of function. Additional exercises will be introduced and as well as a comprehensive home exercise program upon discharge, if needed, ?to ensure carryover of functional gains achieved in the clinic. This treatment plan has been reviewed and agreement upon by the patient.
--- NOTE | 2024-05-22 13:16 | PTOPREEVAL ---
Assessment and note entered by [facility]T File, PT Evaluation Information Assessment Status Re-evaluation Diagnosis R hip abductor tendonitis ICD-10 Condition Codes (PT) Pain in right hip M25.551 Onset 02/16/24 Subjective Information patient reports she is a little worse today. she reports her R hip got a little worse over the weekend as she was out and walking/shopping a lot. she reports she feels she has less pain overall in the ITB of the R LE. LEFS improvement from 42.5 % to 35% today. Reported Pain Level Pain Score 4: Self Report Assessment PT Clinical Summary mrs. retana presents to skilled PT today for her 10th skilled PT visit. she displays continued pain in the R hip, but less overall and improved subjective function per the LEFS. patient has made progress towards goals, but has not yet achieved more than her HEP goal. 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 Plan of Care Interventions Electrical Stimulation,Gait Training,Hot Pack/Cold Pack,Manual Therapy,Neuro Re-education,Patient/ Caregiver Educati,Therapeutic Activities, Therapeutic Exercise PT Services Indicated Yes Treatment Frequency and continue skilled PT 2x weekly for 6 more visits Duration These treatments will address the objective and functional deficits as defined above. The patient will be advanced safely and appropriately in order for the patient to progress towards his/her prior level of function. Additional exercises will be introduced and as well as a comprehensive home exercise program upon discharge, if needed, ?to ensure carryover of functional gains achieved in the clinic. This treatment plan has been reviewed and agreement upon by the patient.
--- NOTE | 2024-06-26 10:08 | OPREHPOC ---
Outpatient Therapy Plan of Care This is a Multidisciplinary Plan of Care that may contain components documented by all disciplines (PT, OT, and ST.) PT Problem 1 PT Problem #1 Knowledge Deficit PT Goal 1 Goal / Goal Update 1. independent and compliant with HEP Target Visit 5 Progress Met PT Problem 2 PT Problem #2 Pain PT Goal 1 Goal / Goal Update 1. decrease pain at worst to 2/10 or less in the lateral R hip/LE and gluteal region. Target Visit 16 Progress Not Met PT Problem 3 PT Problem #3 Impaired Strength PT Goal 1 Goal / Goal Update 1. 5/5 bilateral hip strength Target Visit 16 Progress Partially Met PT Problem 4 PT Problem #4 Impaired Functional Mobility PT Goal 1 Goal / Goal Update 1. normal gait mechanics on level surfaces. met in short distance 2. reciprocal mechanics up and down steps. met up 3. patient to squat and lift small objects from floor safely and confidently. DC goal 4. LEFS to display 30% or less functional deficits . not met Target Visit 16 Progress Partially Met
--- NOTE | 2024-06-26 10:08 | PTOPDC ---
Assessment and note entered by JT File, PT Evaluation Information Assessment Status Discharge Diagnosis R hip abductor tendonitis ICD-10 Condition Codes (PT) Pain in right hip M25.551 Onset 02/16/24 Subjective Information patient reports she feels improved today. she reports she still has increased pain at times, but reports she in general feels better about her lateral hip and ITB. she reports she has been consistent with her HEP at home. Reported Pain Level Pain Score 2: Self Report Assessment PT Clinical Summary mrs. retana presents to skilled PT with decreased pain and symptoms in the R hip. she is compliant with her HEP daily, and reports feeling ready to be down with therapy. she displays improved bilateral hip strength, but is still limited with most functional activities for other issues with her lungs. she will DC skilled PT of the R hip today, and continue with HEP independent at home. Plan of Care PT Services Indicated Yes
== END 2024-06-26 10:23 | disposition home or self-care (01) ==
LOC: CHSPT 12:47
DX: M25.551 Pain in right hip (principal); M76.891 Other specified enthesopathies of right lower limb, excluding foot
CPT/HCPCS: 97014; 97110; 97112; 97140; 97161; 97530; G0283

== ENCOUNTER 2024-05-07 13:00 | Outpatient (CLI) | payer MEDICARE, SELFPAY ==
--- NOTE | ~2024-05-07 | XR_ITS ---
XR chest 2V Ordering provider: Paolo Reinoso, History: 73 years Female with . recent covid,MICHEL . Comparison: None. FINDINGS: MEDIASTINUM: The cardiac silhouette is not enlarged. LUNGS: No effusions or pneumothorax. Fibrotic changes are seen in both lungs with cystic changes. Int erstitial thickening is seen suggestive of pneumonitis more prominent in the left mid and lower zone. . OTHER: No free air under the diaphragm. Degenerative the spine. IMPRESSION: Pneumonitis in the left mid and lower zone with underlying fibrotic changes. Reviewed, dictated and finalized at location [facility]. [employer]
== END 2024-05-07 13:01 | disposition home or self-care (01) ==
LOC: CHSIMG 13:04
PROVIDERS: PCP Family Medicine; Visit Provider Internal Medicine Cardiovascular Disease
DX: Z01.810 Encounter for preprocedural cardiovascular examination (principal); J98.4 Other disorders of lung
CPT/HCPCS: 71046

== ENCOUNTER 2025-01-07 10:58 | Outpatient (CLI) | payer MEDICARE, SELFPAY ==
--- NOTE | ~2025-01-07 | CT_ITS ---
Non-contrast CT scan of the Abdomen and Pelvis Clinical indication: Abdominal pain Technique: 2.5 mm axial scans were obtained through the abdomen and pelvis without intravenous or or al contrast. Dose reduction technique was used on this scan by utilizing automated exposure control a nd iterative reconstruction technique. The dose-length product (DLP) was 826.52 mGy-cm. COMPARISON: 06/15/2022 Findings: Images through the lung bases reveal bibasilar chronic interstitial disease, similar to pr ior exam. There is no evidence of renal or ureteral calculi. The kidneys and the ureters are nondilated. The liver, spleen, pancreas, and adrenals appear normal. Cholecystectomy clips are present. There are atherosclerotic calcifications of the aorta. . There is no evidence of bowel obstruction. There is mild haziness in the central mesentery with shott y lymph nodes, compatible with mesenteric panniculitis. Images through the pelvis were performed. There is no evidence of ascites or lymphadenopathy. Urinary bladder unremarkable. No pelvic mass seen. No ascites. Impression: Mesenteric panniculitis. Stable bibasilar chronic interstitial pulmonary disease. Reviewed, dictated and finalized at [facility]. Impression: Mesenteric panniculitis. Stable bibasilar chronic interstitial pulmonary diseas e.
== END 2025-01-07 10:59 | disposition home or self-care (01) ==
LOC: MICIMG 10:59
PROVIDERS: PCP Family Medicine; Visit Provider Family Medicine
DX: K65.4 Sclerosing mesenteritis (principal); J84.9 Interstitial pulmonary disease, unspecified
CPT/HCPCS: 74176